=== PATIENT | female | born 1995 | race Hispanic/Latino ===

== ENCOUNTER 2018-06-12 18:24 | Emergency (ER) | payer OTHER ==
[~2018-06-12] VITALS: Ht 162.6 cm; Wt 75.0 kg
[2018-06-12 19:17] LABS: HEMATOCRIT 40.4 % (36.0-47.0); HEMOGLOBIN 12.3 g/dl (12.0-15.5); MEAN CORPUSCULAR HEMOGLOBIN 23.7 pg (27.0-33.0); MEAN CORPUSCULAR HGB CONC 30.4 g/dl (32.0-36.5); MEAN CORPUSCULAR VOLUME 77.7 fl (80.0-96.0); PLATELET COUNT, AUTOMATED 322 10^3/uL (150-450); WHITE BLOOD COUNT 6.8 10^3/uL (4.0-10.0)
[2018-06-12 19:38] LABS: HCG, SERUM QUALITATIVE NEGATIVE (NEGATIVE)
--- NOTE | 2018-06-13 00:21 | REPVR ---
EXAM: US Pelvis Complete, Transabdominal and US Pelvis, Transvaginal EXAM DATE/TIME: 06/12/2018 10:01 PM CLINICAL HISTORY: 23 years old, female; Signs and symptoms; Menstruation abnormalities; Irregular menstruation; Additional info: Cramping/irregular menses TECHNIQUE: Imaging protocol: Real-time transabdominal and transvaginal pelvic ultrasound (complete) with image documentation. Transvaginal imaging was used for better evaluation of the endometrium and adnexa. COMPARISON: No relevant prior studies available. FINDINGS: Uterus/cervix: Uterus measures 7.5 x 3.8 x 4.2 cm. Endometrial stripe measures 11.0 mm in diameter. No uterine masses. Right adnexa: Right ovary measures 4.0 x 2.8 x 3.5 cm. No masses. Normal vascular flow. Approximate 15 follicles in the periphery of the right ovary. There is apparent central stromal echogenicity. Left adnexa: Left ovary measures 2.4 x 2.2 x 2.8 cm. No masses. Normal vascular flow. Free fluid: No free fluid. Bladder: Normal. IMPRESSION: Increased number of follicles in the right ovary. Correlate with possible polycystic ovary. Correlate adequate. Unremarkable uterus and left ovary. Electronically signed by: Nima Siu On 06/13/2018 00:21:17 AM
[2018-06-13 00:28] VITALS: BP 127/70
--- NOTE | 2018-06-14 13:14 | ED PDOC ---
Post-Departure Follow-Up ft leslie capone faxed formal report of pelvic us for fu Farshad Gupta MD Jun 14, 2018 13:14
== END 2018-06-13 00:32 | disposition home or self-care (01) ==
LOC: M ED 18:24
DX: E28.2 Polycystic ovarian syndrome (principal)

== ENCOUNTER → 2018-07-03 | Outpatient (CLI) | payer OTHER ==
[2018-07-03 18:21] LABS: FREE T4 0.91 NG/DL (0.76-1.46); THYROID STIMULATING HORMONE 1.12 uIU/ML (0.358-3.740)
[2018-07-03 18:43] LABS: HEMOGLOBIN A1c 5.1 %
== END ==
LOC: M SMT 10:58
PROVIDERS: ATTEND Obstetrics & Gynecology
DX: N93.9 Abnormal uterine and vaginal bleeding, unspecified (principal)

== ENCOUNTER 2018-08-17 11:05 | Emergency (ER) | payer OTHER ==
[~2018-08-17] VITALS: Ht 162.6 cm; Wt 77.3 kg
[2018-08-17] MEDS ORDERED: PRENTAB9 PO (11:16)
[2018-08-17 11:45] LABS: BASO % 0.6 % (0.0-1.0); EOS # 0.2 10^3/uL (0.0-0.50); HEMATOCRIT 39.8 % (36.0-47.0); HEMOGLOBIN 12.8 g/dl (12.0-15.5); LYMPH # 2.4 10^3/uL (1.5-6.5); LYMPH % 35.4 % (24.0-44.0); MEAN CORPUSCULAR HEMOGLOBIN 26.9 pg (27.0-33.0); MEAN CORPUSCULAR HGB CONC 32.2 g/dl (32.0-36.5); MEAN CORPUSCULAR VOLUME 83.8 fl (80.0-96.0); MONO # 0.7 10^3/uL (0.0-0.8); MONO % 9.9 % (0.0-5.0); NEUTROPHILS # 3.4 10^3/uL (1.8-7.7); NEUTROPHILS % 50.8 % (36.0-66.0); PLATELET COUNT, AUTOMATED 285 10^3/uL (150-450); RED BLOOD COUNT 4.75 10^6/uL (4.00-5.40); WHITE BLOOD COUNT 6.8 10^3/uL (4.0-10.0)
[2018-08-17 12:23] LABS: BLOOD UREA NITROGEN 10 MG/DL (7-18); CALCIUM LEVEL 8.8 MG/DL (8.5-10.1); CARBON DIOXIDE LEVEL 25 MEQ/L (21-32); CHLORIDE LEVEL 107 MEQ/L (98-107); CREATININE FOR GFR 0.62 MG/DL (0.55-1.30); GLOMERULAR FILTRATION RATE > 60.0 (>60); GLUCOSE, FASTING 98 MG/DL (70-100); HCG, SERUM QUANTITATIVE 7323 MIU/ML; POTASSIUM SERUM 3.9 MEQ/L (3.5-5.1); SODIUM LEVEL 137 MEQ/L (136-145)
--- NOTE | 2018-08-17 13:37 | REP ---
Clinical: Vaginal bleeding for dating and viability. Technique: Transabdominal and transvaginal first trimester obstetrical ultrasound with color evaluation. Findings: Normal anteverted uterus measures 9.1 x 6.6 x 6.6 cm. A gestational sac is identified with yolk sac, but no pole. Mean sac diameter of 12.7 mm correspond to 6 weeks 1 day gestational age. Bilateral maternal ovaries are normal in appearance and vascularity without torsion. Right ovary measures 3.0 x 2.3 by 1.7 cm (RI 0.59) and includes 1.6 cm hemorrhagic corpus luteal cyst. Left ovary measures 2.8 x 1.3 x 1.2 cm (RI 0.50). Impression: Presumed early with gestational sac and yolk sac but no pole. Differential diagnosis cannot exclude blighted ovum and less likely ectopic . Correlation with serial HCG levels recommended. Electronically Signed by Kameron Strange MD 08/17/2018 01:28 P
[2018-08-17 13:53] VITALS: BP 113/66
== END 2018-08-17 14:14 | disposition home or self-care (01) ==
LOC: M ED 11:05
DX: O20.0 Threatened abortion (principal); Z3A.01 Less than 8 weeks gestation of pregnancy

== ENCOUNTER → 2018-08-20 | Outpatient (CLI) | payer OTHER ==
[~2018-08-20] MED LIST: PRENTAB9 PO
== END ==
LOC: M LAB 10:26
PROVIDERS: ATTEND Nurse Practitioner Family
DX: O20.0 Threatened abortion (principal)

== ENCOUNTER → 2018-09-26 | Outpatient (CLI) | payer OTHER | LOC: M SMT 09:53 | PROVIDERS: ATTEND Obstetrics & Gynecology | DX: Z34.81 Encounter for supervision of other normal pregnancy, first trimester (principal); Z3A.00 Weeks of gestation of pregnancy not specified ==

== ENCOUNTER → 2018-11-15 | Outpatient (CLI) | payer OTHER ==
--- NOTE | 2018-11-15 15:13 | REP ---
Obstetric ultrasound for anatomy: There is a single intrauterine gestation in a breech presentation. There is movement and cardiac activity. The heart rate is 134 beats per minute. The placenta is posterior. There is no previa or abruptio. The placenta is grade zero. The amniotic fluid volume subjectively is normal. The cervix measures 5.5 cm length. Gestational age by today's ultrasound is 18-week 6 days/CARLO 04/12/2019. Gestational age by LMP is 19 weeks 2 days/CARLO 04/09/2019. The following anatomic structures are identified and are unremarkable: Cranium, choroid plexus, cavum septum pellucidum, lungs, diaphragm, stomach, cord insertion, three-vessel cord, kidneys, bladder, spine and upper lower extremities. The following structures are suboptimally demonstrated because of position: facial features, four-chamber view of the heart, and the cardiac right and left ventricular outflow tracts. A followup study dedicated to these structures might be considered. Otherwise, there are no anomalies Electronically Signed by Easton Caceres MD 11/15/2018 03:04 P
== END ==
LOC: M RAD 09:29
PROVIDERS: ATTEND Obstetrics & Gynecology
DX: O32.1XX0 Maternal care for breech presentation, not applicable or unspecified (principal); Z36.89 Encounter for other specified antenatal screening; Z3A.18 18 weeks gestation of pregnancy

== ENCOUNTER → 2018-12-31 | Outpatient (CLI) | payer OTHER ==
--- NOTE | 2019-01-01 06:15 | REP ---
Clinical: Anatomical evaluation. Comparison: 11/15/2018 . Findings: Examination demonstrates a single live intrauterine in cephalic presentation. motion is identified by technologist. Placenta is noted the posterior and grade I without evidence for placenta previa or abruption. Amniotic fluid volume is normal. Cervix measures 3.9 cm in length and appears closed. No evidence for nuchal cord. Gestational age by LMP 25 weeks 6 days with CARLO 04/09/2019 Gestational age by current measurements the 26 weeks 0 day with CARLO 04/08/2019 . FHR equals 132 beats per minute. Estimated weight 898 grams ( 49 percentile). Anatomical assessment demonstrates normal structures including cranium, choroid plexus, cerebellum/posterior fossa, lungs, diaphragm, stomach, cord insertion/three-vessel cord, kidneys/bladder, spine, and extremities. Impression: 1. Single live intrauterine in cephalic presentation demonstrating appropriate interval growth. 2. Continued limited evaluation of the facial features and heart/ventricular outflow tracts due to positioning. Electronically Signed by Kameron Strange MD 01/01/2019 06:07 A
== END ==
LOC: M RAD 10:13
PROVIDERS: ATTEND Advanced Practice Midwife
DX: Z34.82 Encounter for supervision of other normal pregnancy, second trimester (principal)

== ENCOUNTER → 2019-01-23 | Outpatient (CLI) | payer OTHER ==
--- NOTE | 2019-01-24 07:48 | REP ---
Clinical: Anatomical evaluation. Comparison: 12/31/2018 . Findings: Examination demonstrates a single live intrauterine in breech presentation. motion is identified by technologist. Placenta is noted left fundal and grade zero without evidence for placenta previa or abruption. Amniotic fluid volume is normal. Cervix measures 4.1 cm in length and appears closed. Nuchal cord cannot be excluded. Gestational age by LMP 29 weeks 1 day with CARLO 04/09/2019 . Gestational age by current measurements 28 weeks 4 days with CARLO 04/13/2019 . FHR equals 134 beats per minute. Estimated weight 1188 grams ( 22nd percentile). Amniotic fluid index: 16.2 cm Umbilical cord SD ratio: 3.98 (2.50 - 3.50). Anatomical assessment demonstrates normal structures including cranium, choroid plexus, cavum, cerebellum/posterior fossa, facial features, lungs, four-chamber heart/ventricular outflow tracts, diaphragm, stomach, cord insertion/three-vessel cord, kidneys/bladder, and extremities. Impression: 1. Single live intrauterine in breech presentation demonstrating appropriate interval growth. 2. Nuchal cord cannot be excluded. 3. In conjunction with prior examination anatomical assessment is complete and normal. Electronically Signed by Kameron Strange MD 01/24/2019 07:39 A
== END ==
LOC: M RAD 15:34
PROVIDERS: ATTEND Advanced Practice Midwife
DX: Z34.82 Encounter for supervision of other normal pregnancy, second trimester (principal)

== ENCOUNTER → 2019-02-22 | Outpatient (CLI) | payer OTHER ==
[2019-02-22 14:00] LABS: HEMATOCRIT 37.6 % (36.0-47.0); HEMOGLOBIN 11.9 g/dl (12.0-15.5); MEAN CORPUSCULAR HEMOGLOBIN 28.1 pg (27.0-33.0); MEAN CORPUSCULAR HGB CONC 31.6 g/dl (32.0-36.5); MEAN CORPUSCULAR VOLUME 88.7 fl (80.0-96.0); PLATELET COUNT, AUTOMATED 171 10^3/uL (150-450); RED BLOOD COUNT 4.24 10^6/uL (4.00-5.40); WHITE BLOOD COUNT 7.9 10^3/uL (4.0-10.0)
== END ==
LOC: M PLALAB 10:03
PROVIDERS: ATTEND Obstetrics & Gynecology
DX: Z33.1 Pregnant state, incidental (principal)

== ENCOUNTER → 2019-03-04 | Outpatient (REF) | payer OTHER | LOC: M PLALAB 13:23 | PROVIDERS: ATTEND Obstetrics & Gynecology | DX: Z33.1 Pregnant state, incidental (principal) ==

== ENCOUNTER 2019-03-08 13:37 | Outpatient (CLI) | payer OTHER ==
[~2019-03-08] VITALS: Ht 162.6 cm; Wt 98.2 kg
[2019-03-08 13:50] VITALS: BP 115/66
--- NOTE | 2019-03-08 14:13 | IPNPDOC ---
Text Note Date of Service The patient was seen on 03/08/19. NOTE Outpatient 23yo G1 CARLO 04/17/2019. Presents @ 34w2d with complaints of decreased FM today. Denies LOF or bleeding. Reports usual good movement. NAD, VSS Cat I tracing. Fetus is very active with audible movements No UC Reviewed with patient and partner change in movement patterns at term, more subtle requiring close attention daily. Pt is reassured. After hours access, PTL, daily FKC, warnings reviewed. Keep next appt Sola Trevizo CNM Mar 08, 2019 14:13
== END 2019-03-08 14:22 | disposition home or self-care (01) ==
LOC: M LDO 13:37
PROVIDERS: ATTEND Advanced Practice Midwife
DX: O36.8130 Decreased fetal movements, third trimester, not applicable or unspecified (principal); Z3A.34 34 weeks gestation of pregnancy
CPT/HCPCS: 59025; G0378; G0463

== ENCOUNTER → 2019-03-19 | Outpatient (CLI) | payer OTHER | LOC: M PLALAB 12:20 | PROVIDERS: ATTEND Advanced Practice Midwife | DX: Z34.93 Encounter for supervision of normal pregnancy, unspecified, third trimester (principal) ==

== ENCOUNTER → 2019-03-19 | Outpatient (REF) | payer OTHER | LOC: M SFHCWAGY 16:49 | PROVIDERS: ATTEND Advanced Practice Midwife | DX: Z34.93 Encounter for supervision of normal pregnancy, unspecified, third trimester (principal) ==

== ENCOUNTER 2019-04-17 06:21 | Inpatient (IN) | payer OTHER ==
[2019-04-17] VITALS (38 sets, daily range): BP systolic 82–143; BP diastolic 50–92
[~2019-04-17] VITALS: Ht 162.6 cm; Wt 102.9 kg
[2019-04-17] MEDS ORDERED: LACTATED RINGER'S 1000 ML IV STA (07:02)
[2019-04-17 08:11] LABS: HEMATOCRIT 39.9 % (36.0-47.0); HEMOGLOBIN 12.9 g/dl (12.0-15.5); MEAN CORPUSCULAR HEMOGLOBIN 27.6 pg (27.0-33.0); MEAN CORPUSCULAR HGB CONC 32.3 g/dl (32.0-36.5); MEAN CORPUSCULAR VOLUME 85.4 fl (80.0-96.0); PLATELET COUNT, AUTOMATED 160 10^3/uL (150-450); RED BLOOD COUNT 4.67 10^6/uL (4.00-5.40); WHITE BLOOD COUNT 10.9 10^3/uL (4.0-10.0)
[2019-04-17] MEDS ORDERED: PROMETHAZINE INJ 25 MG/ML VIAL (J2550) IV ONE (08:15)
[2019-04-17] MEDS ORDERED: BUTORPHANOL 2 MG/ML INJ (J0595) IV ONE (08:15)
[2019-04-17] MEDS ORDERED: FENTANYL 2MCG/ML ROPIVACAINE 0.2% IN 0.9% NACL 100ML IVBAG As Ordered ONE ×2 (11:50→18:46)
[2019-04-17] MEDS ORDERED: NALOXONE INJ 0.4 MG/1 ML VIAL (J2310) IV PRN (12:21)
[2019-04-17] MEDS ORDERED: diphenhydrAMINE INJ 50MG/ML VIAL (J1200) IV PRN (12:21)
[2019-04-17] MEDS ORDERED: REFRIGERATOR IV KEYS XX PRN (12:21)
[2019-04-17] MEDS: FENTANYL/ROPIVACAINE/NACL BAG 100 ML EPIDURAL SCH ×2 (12:21→18:51)
[2019-04-17] MEDS ORDERED: EPIDURAL COMMENT XX SCH (12:21)
[2019-04-17] MEDS ORDERED: EPIDURAL/PCA KEYS XX PRN (12:21)
[2019-04-17] MEDS ORDERED: ONDANSETRON 4MG/2ML VIAL (J2405) IV PRN (12:21)
[2019-04-17] MEDS ORDERED: LACTATED RINGER'S 1000 ML IV PRN (12:21)
[2019-04-17] MEDS: LR 1,000 ML IV SCH ×3 (12:38→18:41)
[2019-04-17] MEDS: ePHEDrine SULFATE 25 MG/5 ML(5MG/ML) SYRINGE IV PRN ×3 (13:24→13:33)
[2019-04-17] MEDS ORDERED: LR 1,000 ML IV SCH (17:54)
[2019-04-17] MEDS ORDERED: OXYTOCIN 30 UNITS IN 0.9% NaCl 500ML IV BAG (J2590) As Ordered ONE (17:54)
[2019-04-17] MEDS ORDERED: OXYTOCIN DRIP 30 UNITS in IV 1 EA IV SCH ×2 (18:00→21:40)
[2019-04-17] MEDS ORDERED: METHYLERGONOVINE MALEATE 0.2 MG TAB PO PRN (21:45)
[2019-04-17] MEDS ORDERED: DOCUSATE SODIUM 100 MG CAP PO PRN (21:45)
[2019-04-17] MEDS ORDERED: ACETAMINOPHEN 500 MG TAB PO PRN (21:45)
[2019-04-17] MEDS ORDERED: IBUPROFEN 600 MG TAB PO PRN (21:45)
[2019-04-17] MEDS ORDERED: ACETAMINOPHEN TAB 650MG DOSE (2X325MG) PO PRN (21:45)
[2019-04-17] MEDS ORDERED: RHOGAM 300 MCG (1500 IU) INJ (J2790) IM SCH (21:45)
[2019-04-17] MEDS ORDERED: MEASLES,MUMPS,RUBELLA VACCINE INJ (MMR-II) (90707) SC SCH (21:45)
[2019-04-17] MEDS: IBUPROFEN 800 MG TAB PO PRN (22:20)
[2019-04-18 05:40] VITALS: BP 112/59
[2019-04-18] MEDS: DIBUCAINE 1% OINTMENT 30GM TOP PRN ×2 (06:28→18:19)
[2019-04-18] MEDS: PRENATAL VITAMINS CHEWABLE TABLET PO SCH (09:29)
[2019-04-18] MEDS: IBUPROFEN 800 MG TAB PO PRN ×2 (09:30→20:12)
--- NOTE | 2019-04-18 11:00 | DN ---
DATE: 03/24 Shanti is a 23-year-old 1, para 1-0-0-1 now who was admitted to labor and delivery in active labor. She used IV medications and epidural to cope with her labor. Her labor was augmented with IV Pitocin. She had spontaneous rupture of membranes for meconium stained fluid at 1929. She reached complete dilation at 2017. She pushed to a normal spontaneous vaginal delivery of a live male infant in right occiput anterior (YAMIL) position with restitution to right occiput transverse (ROT) position at 2110. There was a nuchal cord times one tight reduced with somersault maneuver at the time of delivery. The was placed on maternal abdomen following his mouth and nares being suctioned crying and active. The cord was clamped times two once pulsations ceased and cut by the father of the baby under my direction. Cord blood was obtained. Spontaneous expulsion of an intact placenta with three-vessel cord by Smith mechanism was at 2113. Uterine hemostasis achieved with IV Pitocin rapid infusion and uterine fundal massage. Estimated blood loss 450 mL. The perineum and vagina inspected and noted to have a second-degree midline laceration. The laceration was repaired to #3-0 Rapide in the usual fashion. The male weighed 3500 grams, 7 pounds 11 ounces, 8 and 9. Mom is going to breastfeed her son and the family have named him Rodriguez. At the close of delivery lap counts, needle counts and instrument counts were correct and verified.
[2019-04-18 18:14] VITALS: BP 136/64
[2019-04-18 19:30] VITALS: BP 131/73
[2019-04-19 06:00] VITALS: BP 120/65
[2019-04-19] MEDS: DIBUCAINE 1% OINTMENT 30GM TOP PRN (07:41)
[2019-04-19] MEDS: PRENATAL VITAMINS CHEWABLE TABLET PO SCH (07:42)
--- NOTE | 2019-04-19 07:44 | IPNPDOC ---
Subjective Date Seen The patient was seen on 04/19/19. Subjective Chief Complaint/HPI Doing well /o complaints. + voids, + ambulation, + General: Reports: Normal Appetite; Denies: Chills, Night Sweats, Fatigue, Malaise Constitutional: Denies: Chills, Fever, Night Sweats Eyes: Denies: Pain, Vision change ENT: Denies: Head Aches, Ear Pain, Dysphagia Skin: Denies: Rash, Lesions, Breakdown Pulmonary: Denies: Dyspnea, Cough Cardiovascular: Denies: Chest Pain, Palpitations, Orthopnea, Paroxysmal Noc. Dyspnea, Lt Headedness Gastrointestinal: Denies: Nausea, Vomiting, Abdominal Pain, Diarrhea, Constipation Genitourinary: Denies: Dysuria, Frequency, Incontinence, Retention Hematologic: Denies: Bruising, Bleeding Excessively Musculoskeletal: Denies: Neck Pain, Back Pain, Joint Pain, Muscle Pain, Spasms Neurological: Denies: Weakness, Numbness, Change in speech, Confusion Psych: Reports: Mood Normal; Denies: Depression, Memory Issues Objective Physical Examination General Exam: Positive: Alert Abdomen Exam: Positive: Normal bowel sounds, Soft; Negative: Tenderness, Hepatospenomegaly Female Exam: Positive: Nl Ext Genitalia; Negative: Normal Cervical Exam, Lesions, Discharge, Odor, Tenderness, Nl Rectal Sphincter Tone Assessment /Plan Assessment PPD#1 s/p , recovering instable condition Plan/VTE VTE Prophylaxis Ordered?: Yes VTE Exclusion Mechanical Proph: Other Plan Activity: Continue Current cont routine care discharge plans for tomorrow VS, I&O, 24H, Fishbone Vital Signs/I&O Vital Signs Date Time Temp Pulse Resp B/P (MAP) Pulse Ox O2 Delivery O2 Flow Rate FiO2 04/19/19 06:00 99.4 92 18 120/65 (83) 04/18/19 19:30 97 Room Air I&O- Last 24 Hours up to 6 AM 04/19/19 06:00 Output Total 400 ml Balance -400 ml IRENE MAY MD. Apr 19, 2019 07:44
== END 2019-04-19 14:00 | disposition home or self-care (01) | DRG 807 ==
LOC: M LDO 06:21 → M LDI 06:57 → M OBS 23:36
PROVIDERS: ADMIT Obstetrics & Gynecology; ATTEND Advanced Practice Midwife
PROC: 10E0XZZ Delivery of Products of Conception, External Approach (ICD-10-PCS; principal; 2019-04-17)
PROC: 0KQM0ZZ Repair Perineum Muscle, Open Approach (ICD-10-PCS; 2019-04-17)
DX: O69.1XX0 Labor and delivery complicated by cord around neck, with compression, not applicable or unspecified (principal); Z37.0 Single live birth; Z3A.40 40 weeks gestation of pregnancy; O70.1 Second degree perineal laceration during delivery

== ENCOUNTER → 2019-11-22 | Outpatient (REF) | payer OTHER ==
[2019-11-22 17:10] LABS: HEMATOCRIT 32.4 % (36.0-47.0); HEMOGLOBIN 10.1 g/dl (12.0-15.5); MEAN CORPUSCULAR HEMOGLOBIN 27.4 pg (27.0-33.0); MEAN CORPUSCULAR HGB CONC 31.2 g/dl (32.0-36.5); MEAN CORPUSCULAR VOLUME 87.8 fl (80.0-96.0); PLATELET COUNT, AUTOMATED 340 10^3/uL (150-450); RED BLOOD COUNT 3.69 10^6/uL (4.00-5.40); WHITE BLOOD COUNT 5.4 10^3/uL (4.0-10.0)
[2019-11-22 17:26] LABS: HCG, SERUM QUALITATIVE NEGATIVE (NEGATIVE)
[2019-11-22 17:33] LABS: FERRITIN 4 NG/ML (8-252); THYROID STIMULATING HORMONE 0.942 uIU/ML (0.358-3.740)
== END ==
LOC: M PLALAB 14:39
PROVIDERS: ATTEND Advanced Practice Midwife
DX: N92.6 Irregular menstruation, unspecified (principal); R53.83 Other fatigue
CPT/HCPCS: 36415; 82652; 82728; 84439; 84443; 84703; 85027; G0463

== ENCOUNTER → 2019-12-19 | Outpatient (REF) | payer OTHER ==
[2019-12-19 17:27] LABS: HEMATOCRIT 37.3 % (36.0-47.0); HEMOGLOBIN 11.4 g/dl (12.0-15.5); MEAN CORPUSCULAR HEMOGLOBIN 26.5 pg (27.0-33.0); MEAN CORPUSCULAR HGB CONC 30.6 g/dl (32.0-36.5); MEAN CORPUSCULAR VOLUME 86.7 fl (80.0-96.0); PLATELET COUNT, AUTOMATED 335 10^3/uL (150-450)
[2019-12-26 20:07] LABS: FACTOR VIII AG (VON WILLEBRAN) 50 % (50-200)
== END ==
LOC: M PLALAB 15:40
PROVIDERS: ATTEND Advanced Practice Midwife
DX: N92.1 Excessive and frequent menstruation with irregular cycle (principal); D64.9 Anemia, unspecified
CPT/HCPCS: 36415; 85027; 85246; G0463

== ENCOUNTER → 2019-12-20 | Outpatient (CLI) | payer OTHER ==
--- NOTE | 2019-12-20 17:21 | REP ---
INDICATION: N92.1 EXCESSIVE BLEEDING. COMPARISON: 06/12/2018. TECHNIQUE: Transabdominal scanning were performed. FINDINGS: Uterine dimensions are normal at 8.3 x 3.6 x 5.5 cm. Endometrial echo is 8 mm thick and centrally placed. No free fluid is seen in the cul-de-sac. The bladder measures 13.0 x 11.2 x 8.5 cm. The right ovary has dimensions of 4.6 x 2.0 x 2.4 cm. It's Doppler flow is normal with a resistive index of 0.48. The left ovary dimensions are normal as well at 3.2 x 2.1 x 2.8 cm. It's Doppler flow was normal with resistive index of 0.45. IMPRESSION: Normal pelvic sonography. <Electronically signed by Easton Rajan > 12/20/19 [id number]
== END ==
LOC: M WHC 15:53
PROVIDERS: ATTEND Advanced Practice Midwife
DX: N92.1 Excessive and frequent menstruation with irregular cycle (principal)